=== PATIENT | male | born 1960 | race Caucasian/White ===

== ENCOUNTER 2024-03-12 13:31 | Emergency (ER) | payer MEDICARE, OTHER, SELFPAY ==
[2024-03-12 13:34] VITALS: BP 141/86
[2024-03-12 13:57] LABS: % Basophils 0.8 % (0-2); % Eosinophils 1.3 % (0-6); % Immature Granulocytes 0.2 % (0-0.5); % Lymphocytes 24.9 % (20.5-51.1); % Monocytes 9.9 % (1.7-9.3); % Neutrophils 62.9 % (42.2-75.2); Absolute Basophils 0.1 10^3/uL (0-0.2); Absolute Eosinophils 0.1 10^3/uL (0-0.7); Absolute Lymphocytes 2.1 10^3/uL (1.2-3.4); Absolute Monocytes 0.8 10^3/uL (0.1-0.6); Absolute Neutrophils 5.3 10^3/uL (1.4-6.5); Hematocrit 44.2 % (39.0-52.0); Hemoglobin 15.2 g/dL (13.0-18.0); Mean Corp Hgb Conc. 34.4 g/dL (33.0-37.0); Mean Corpuscular Hgb 31.8 pg (27.0-31.0); Mean Corpuscular Volume 92.5 fL (80.0-94.0); Nucleated Red Blood Cells % 0 % (-); Platelet Count 255 10^3/uL (130-400); Red Blood Cell Count 4.78 10^6/uL (4.70-6.10); Red Cell Dist. Width 12.9 % (11.5-14.5); White Blood Cell Count 8.4 10^3/uL (4.8-10.8)
[2024-03-12 14:05] LABS: INR 1.06; PT 13.6 Sec (11.4-14.6)
[2024-03-12 14:06] LABS: APTT 25.8 Sec (23.4-35.0)
[2024-03-12 14:09] LABS: ALT (SGPT) 28 U/L (0-50); AST (SGOT) 31 U/L (17-59); Albumin 4.1 g/dl (3.5-5.0); Alkaline Phosphatase 101 U/L (38-126); Blood Urea Nitrogen 16 mg/dl (9-20); Calcium 9.2 mg/dl (8.4-10.2); Carbon Dioxide 26 mmol/L (22-30); Chloride 107 mmol/L (98-107); Glucose 102 mg/dl (70-99); Potassium 4.5 mmol/L (3.5-5.1); Sodium 135 mmol/L (135-145); Total Bilirubin 0.9 mg/dl (0.2-1.3); Total Protein 7.2 g/dl (6.3-8.2); eGFR > 60.00
[2024-03-12 14:19] LABS: Troponin I < 0.012 ng/ml
--- NOTE | 2024-03-12 19:02 | ED.GENMED ---
History of Present Illness
General
Chief Complaint: Chest Pain
Source: patient
Exam Limitations: none
Time Seen by Provider: 03/12/24 17:02
Nursing documentation reviewed up to this point in time: agreed with
Travel History
Have you had any contact with someone who has COVID-19?: No
Do you have any symptoms of coronavirus? Fever > 100 degrees, chills, cough, shortness of breath, sore throat, loss of taste or smell, muscle aches, or headache?: No
History of Present Illness
History of Present Illness:
63-year-old male with past medical history of hypertension hyperlipidemia previous myocarditis presenting to the emergency department today with concerns of chest pain some generalized weakness starting last night. Denies shortness of breath nausea
vomiting diaphoresis. Claims that he had similar symptoms many times in the past but denies any definitive diagnosis.
Past History
Past History
ED Past Medical History: CAD, GERD, HTN, Hypercholesterolemia and CT
ED Past Surgical History: Cardiac (Stents X2) and Other (Hernia repair)
Social History
Tobacco: Former smoker
Alcohol: Occasional
Drug: None
Personal:
Living: alone
Employment: Employed
Family History
Family History: Other
Review of Systems
Review of Systems
Allergies reviewed?: Yes
All Other Systems: ROS reviewed and negative except as documented in HPI and ROS
Phy Exam
Physical Exam
Physical Exam:
GENERAL: Alert , in no apparent distress
EYE: pupils equal and reactive
NECK: Supple, no significant adenopathy.
ENT: o/p clr, mmm.
CARDIAC: Regular rate and rhythm .
LUNGS: Clear breath sounds bilaterally, no acute respiratory distress, no wheezes/rales/rhonchi
ABDOMEN: Soft, without focal tenderness, no r/g, no cvat
NEUROLOGICAL: Alert and oriented, no focal neuro deficits
SKIN: Warm and dry, skin intact.
MUSCULOSKELETAL: No edema, well perfused.
PSYCH: Normal and appropriate interaction.
Scores
Heart Score for Chest Pain Patients
STEMI patient?: No
History: Slightly or Non-Suspicious
ECG: Normal
Age: >/= 65 years
Risk Factors: >/= 3 Risk Factors or History of CAD
Troponin: </= Normal Limit
Heart Score for Chest Pain Patients: 4
Heart Score Risk: 20.3% MACE over next 6 weeks
Course
Orders/Labs/Results
Orders:
Orders
03/12/24 13:36
Electrocardiogram (*1) Urgent
Reason for Study: Chest Pain
EKG- Treatment ONCE
03/12/24 13:44
Complete Blood Count/With Diff Urgent
Comprehensive Metabolic Panel Urgent
Protime/PTT Urgent
Troponin I Urgent
03/12/24 17:04
Chest [CR Chest - 2 Views ] Urgent
Comment:
Reason For Exam: cp
Abnormal Lab Results
03/12/24
13:44
MCH 31.8 H pg
(27.0-31.0)
Absolute Monos (auto) 0.8 H 10^3/uL
(0.1-0.6)
Monocytes % 9.9 H %
(1.7-9.3)
Glucose 102 H mg/dl
(70-99)
03/12/24 13:44
03/12/24 13:44
Vital Signs
Initial and Last Documented VS:
Initial Vital Signs
Temp Pulse Resp BP Pulse Ox
98.6 F 78 18 141/86 98
03/12/24 13:34 03/12/24 13:34 03/12/24 13:34 03/12/24 13:34 03/12/24 13:34
Last Documented Vital Signs
Temp Pulse Resp BP Pulse Ox
98.6 F 71 18 148/87 98
03/12/24 13:34 03/12/24 19:08 03/12/24 19:08 03/12/24 19:08 03/12/24 19:08
MDM/Problems Addressed
MDM/Problems Addressed:
63-year-old male presenting to the emergency department today with concerns of chest discomfort starting last night with associated generalized weakness. Here vital signs are normal upon arrival labs unremarkable troponin negative EKG nonischemic
chest x-ray normal. No signs of emergent pathology. Symptoms starting at least 3 hours prior to arrival. Patient advised for close cardiac and GI follow-up no evidence of acute coronary syndrome at this time. Low risk for PE.
*Critical Care Note
Total Time (30-74mins, 75-104mins- exclusive of procedures): Not Applicable
ED Attending Note
-
Portions of this chart may have been created with voice recognition software.� Occasional wrong word or��sound alike� substitutions may have occurred due to the inherent limitations of voice recognition software.
Discharge Plan
Departure
Patient Disposition: Home (Routine Discharge)
Date of Disposition: 03/12/24
Time of Disposition: 19:06
Patient with high blood pressure during this ER visit?: No
Condition: Good
Covid-19: Not Applicable
Discharge Problem:
Chest pain
Instructions: Chest Pain NON-[facility]P Bus Inspector Follow Up
Prescriptions:
No Action
aspirin 81 MG tablet,delayed release (DR/EC)
81 mg PO DAILY
zinc acetate 50 mg (zinc) Capsule
50 mg PO DAILY@1200
lisinopril 5 mg Tablet
5 mg PO HS
doxycycline hyclate 100 mg Tablet
100 mg PO BID
amoxicillin-pot clavulanate 875-125 mg Tablet
1 tab PO Q12H
ezetimibe [Zetia] 10 mg Tablet
10 mg PO HS
rosuvastatin [Crestor] 10 mg Tablet
10 mg PO HS
alpha lipoic acid 300 mg Capsule
600 mg PO BID
Iodine Synergy
1 tab PO DAILY@1200
Probiotic
1 tab PO HS
diltiazem HCl 120 mg capsule,extended release 24 hr
120 mg PO HS
Adreno Distress
2 tab PO Q12H
cholecalciferol (vitamin D3) [Vitamin D3] 50 mcg (2,000 unit) Capsule
100 mcg PO DAILY
Cartilage Formula
3 tab PO BID
Cinnamon
2,000 mg PO BID
Magnesium Plus Gaurd
2 tab PO Q12H
metronidazole 500 mg tablet
500 mg PO Q8H Qty: 15 0RF
phenazopyridine 200 mg tablet
200 mg PO TID PRN (Reason: dysuria) Qty: 30 1RF
omeprazole 20 mg capsule,delayed release(DR/EC)
20 mg PO DAILY Qty: 10 0RF
Referrals:
Boyd Valdez DO [Family Provider] -
Activity Restrictions/Additional Instructions:
You can to the emergency department today with concerns of chest discomfort. Here you had a reassuring evaluation you will need to follow-up closely with your flight inspector and GI doctor. Return to the emergency department for any worsening, new or
concerning symptoms.
Interventions
Interventions:
*Risk Screen - Suicide Last Done: 03/12/24 13:34
*General Assessment Last Done: 03/12/24 13:34
*Neglect/Abuse Screening Last Done: 03/12/24 13:34
ED- Fall Risk Assessment Last Done: 03/12/24 17:52
*ED COVID-19 Vaccine History Last Done: 03/12/24 13:34
*Nursing Disposition Last Done: 03/12/24 19:10
ED- Cardiac Assessment Last Done: 03/12/24 17:23
Discharge Date and Time
Discharge Date/Time: 03/12/24 19:11
Print Language: NIUEAN
[2024-03-12 19:08] VITALS: BP 148/87
== END 2024-03-12 19:11 | disposition home or self-care (01) ==
LOC: EMR 13:31
PROVIDERS: Student in an Organized Health Care Education/Training Program; EMERGENCY PHYSICIAN Emergency Medicine; FAMILY PHYSICIAN Family Medicine
DX: R07.89 Other chest pain (principal); R53.1 Weakness; I10 Essential (primary) hypertension; E78.00 Pure hypercholesterolemia, unspecified; I25.10 Atherosclerotic heart disease of native coronary artery without angina pectoris; K21.9 Gastro-esophageal reflux disease without esophagitis; G47.30 Sleep apnea, unspecified; F43.10 Post-traumatic stress disorder, unspecified; N40.0 Benign prostatic hyperplasia without lower urinary tract symptoms; I25.2 Old myocardial infarction; Z95.5 Presence of coronary angioplasty implant and graft; Z87.891 Personal history of nicotine dependence; Z79.82 Long term (current) use of aspirin; Z91.048 Other nonmedicinal substance allergy status
CPT/HCPCS: 99283; 71046; 80053; 84484; 85025; 85610; 85730; 93005

== ENCOUNTER → 2024-05-09 10:07 | Outpatient (REF) | payer MEDICARE, OTHER, SELFPAY | LOC: HWRAD 10:07 | PROVIDERS: ATTENDING PHYSICIAN Family Medicine | DX: M79.671 Pain in right foot (principal) | CPT/HCPCS: 73630 ==

== ENCOUNTER 2024-11-06 09:25 | Emergency (ER) | payer OTHER, SELFPAY ==
[2024-11-06 09:30] VITALS: BP 142/98
--- NOTE | 2024-11-06 10:12 | ED.GENMED ---
History of Present Illness
General
Chief Complaint: DVT/Possible Blood Clot
Time Seen by Provider: 11/06/24 10:12
History of Present Illness
History of Present Illness:
TIME OF INITIAL ENCOUNTER: 10:15 AM
HPI: The patient presents with right lower extremity pain. A couple months ago, the patient had symptoms consistent with plantar fasciitis. He was given a steroid injection twice. He was favoring the pain in the right foot. More recently he has
developed pain in the right calf. He describes a cramp. He denies any symptoms in any other extremity.
EXAM:
GENERAL: Well appearing in no distress
HEENT: Moist oral mucosa
NEUROLOGIC: Excellent strength all extremities, no obvious coordination deficits
PSYCHIATRIC: Appropriate mental status, normal insight and judgement
EXTREMITIES: Nontender, no edema, moves all extremities equally, the compartments are soft, there is no significant calf tenderness, dysfunction at the knee and ankle are excellent
SKIN: No rash, no lesions
NUMBER AND COMPLEXITY OF PROBLEMS ADDRESSED AT THE ENCOUNTER
� Chronic conditions affecting care: High blood pressure, hyperlipidemia, BPH
� Acute Exacerbation and/or Progression of Chronic Illness: This is an acute problem
� Differential Diagnosis includes: DVT, superficial thrombophlebitis, calf strain, doubt electrolyte abnormality
AMOUNT AND/OR COMPLEXITY OF DATA TO BE REVIEWED AND ANALYZED
� I performed an independent evaluation of and my interpretation is:
EKG:
CT:
X-rays:
Laboratory Studies:
Other: Ultrasound imaging personally reviewed and I agree with radiologist interpretation that there is no DVT
� Review of other/old records: The patient went to the OR December 2022 related to BPH
� Clinical information was obtained by an independent historian: None needed
� Prescriptions/Medications Considered but not given: Offered and considered analgesia however the patient declines and appears comfortable anyway
� Further testing considered but not performed:
RISK OF COMPLICATIONS AND/OR MORBIDITY OR MORTALITY OF PATIENT MANAGEMENT
� Social determinants of health affecting care: Lives at home, gets care [facility] the [facility]
� Discussion with other providers:
� Escalation of care including admission/observation vs risk of discharge considered: The physical examination is unremarkable. Doubt electrolyte abnormality as the symptoms are localized to the right calf region. He has no
symptoms in other extremities. Ultrasound imaging is reassuring. He states he has an appointment to see the sausage stuffer at the [facility] in 3 days.
ANY OTHER UPDATES:
Past History
Past History
ED Past Medical History: CAD, GERD, HTN, Hypercholesterolemia and [place]
ED Past Surgical History: Cardiac (Stents X2) and Other (Hernia repair)
Social History
Tobacco: Former smoker
Alcohol: Occasional
Drug: None
Personal:
Living: alone
Employment: Employed
Family History
Family History: Other
Phy Exam
Physical Exam
Physical Exam:
See HPI
Course
Orders/Labs/Results
Orders:
Orders
11/06/24 09:33
US Legs, Right [US Periph Venous LOWER Ext RT] Urgent
Comment:
Reason For Exam: pain in calf
Vital Signs
Initial and Last Documented VS:
Initial Vital Signs
Temp Pulse Resp BP Pulse Ox
37.2 C 86 16 142/98 98
11/06/24 09:30 11/06/24 09:30 11/06/24 09:30 11/06/24 09:30 11/06/24 09:30
Last Documented Vital Signs
Temp Pulse Resp BP Pulse Ox
37.2 C 86 16 142/98 98
11/06/24 09:30 11/06/24 09:30 11/06/24 09:30 11/06/24 09:30 11/06/24 09:30
*Critical Care Note
Total Time (30-74mins, 75-104mins- exclusive of procedures): Not Applicable
ED Attending Note
-
Portions of this chart may have been created with voice recognition software.� Occasional wrong word or��sound alike� substitutions may have occurred due to the inherent limitations of voice recognition software.
Discharge Plan
Departure
Patient Disposition: Home (Routine Discharge)
Date of Disposition: 11/06/24
Time of Disposition: 10:32
Patient with high blood pressure during this ER visit?: Yes
Discharge Problem:
Calf cramp
Prescriptions:
No Action
aspirin 81 MG tablet,delayed release (DR/EC)
81 mg PO DAILY
zinc acetate 50 mg (zinc) Capsule
50 mg PO DAILY@1200
lisinopril 5 mg Tablet
5 mg PO HS
doxycycline hyclate 100 mg Tablet
100 mg PO BID
amoxicillin-pot clavulanate 875-125 mg Tablet
1 tab PO Q12H
ezetimibe [Zetia] 10 mg Tablet
10 mg PO HS
rosuvastatin [Crestor] 10 mg Tablet
10 mg PO HS
alpha lipoic acid 300 mg Capsule
600 mg PO BID
Iodine Synergy
1 tab PO DAILY@1200
Probiotic
1 tab PO HS
diltiazem HCl 120 mg capsule,extended release 24 hr
120 mg PO HS
Adreno Distress
2 tab PO Q12H
cholecalciferol (vitamin D3) [Vitamin D3] 50 mcg (2,000 unit) Capsule
100 mcg PO DAILY
Cartilage Formula
3 tab PO BID
Cinnamon
2,000 mg PO BID
Magnesium Plus Gaurd
2 tab PO Q12H
metronidazole 500 mg tablet
500 mg PO Q8H Qty: 15 0RF
phenazopyridine 200 mg tablet
200 mg PO TID PRN (Reason: dysuria) Qty: 30 1RF
omeprazole 20 mg capsule,delayed release(DR/EC)
20 mg PO DAILY Qty: 10 0RF
Activity Restrictions/Additional Instructions:
The cause of your symptoms is unclear however we see no sign of blood clot. Ultrasound report: 'The RIGHT common femoral, femoral, popliteal, peroneal, and posterior tibial veins are patent. There is no sonographic evidence for deep venous
thrombosis'. [facility]
Interventions
Interventions:
*Risk Screen - Suicide Last Done: 11/06/24 09:30
*General Assessment Last Done: 11/06/24 09:30
*Neglect/Abuse Screening Last Done: 11/06/24 09:30
ED- Fall Risk Assessment Last Done: 11/06/24 10:25
*ED COVID-19 Vaccine History Last Done: 11/06/24 10:23
ED- Cardiac Assessment Last Done: 11/06/24 10:23
ED- Pulmonary Assessment Last Done: 11/06/24 10:23
ED-Peripheral Vascular Assessment Last Done: 11/06/24 10:23
ED-Skin Assessment Last Done: 11/06/24 10:23
Discharge Date and Time
Print Language: TRINIDADIAN
[2024-11-06 10:23] VITALS: BMI 26.4
== END 2024-11-06 10:47 | disposition home or self-care (01) ==
LOC: EMR 09:25
PROVIDERS: EMERGENCY PHYSICIAN Emergency Medicine; FAMILY PHYSICIAN Family Medicine
DX: R25.2 Cramp and spasm (principal); M79.661 Pain in right lower leg; M79.671 Pain in right foot; M72.2 Plantar fascial fibromatosis; I10 Essential (primary) hypertension; E78.00 Pure hypercholesterolemia, unspecified; I25.10 Atherosclerotic heart disease of native coronary artery without angina pectoris; K21.9 Gastro-esophageal reflux disease without esophagitis; I25.2 Old myocardial infarction; Z95.5 Presence of coronary angioplasty implant and graft; Z87.891 Personal history of nicotine dependence; Z91.048 Other nonmedicinal substance allergy status; Z79.82 Long term (current) use of aspirin
CPT/HCPCS: 99284; 93971

== ENCOUNTER 2025-09-10 11:24 | Emergency (ER) | payer MEDICARE, OTHER, SELFPAY ==
[2025-09-10 11:30] VITALS: BP 158/82
[2025-09-10 11:44] LABS: Hematocrit 46.7 % (39.0-52.0); Hemoglobin 15.5 g/dL (13.0-18.0); Mean Corp Hgb Conc. 33.2 g/dL (33.0-37.0); Mean Corpuscular Volume 95.1 fL (80.0-94.0); Nucleated Red Blood Cells % 0 % (-); Platelet Count 246 10^3/uL (130-400); Red Cell Dist. Width 13.1 % (11.5-14.5)
[2025-09-10 12:05] LABS: ALT (SGPT) 28 U/L (0-50); AST (SGOT) 28 U/L (17-59); Albumin 4.5 g/dl (3.5-5.0); Alkaline Phosphatase 83 U/L (38-126); Blood Urea Nitrogen 22 mg/dl (9-20); Calcium 9.3 mg/dl (8.4-10.2); Carbon Dioxide 24 mmol/L (22-30); Chloride 108 mmol/L (98-107); Glucose 115 mg/dl (70-99); Potassium 4.5 mmol/L (3.5-5.1); Sodium 136 mmol/L (135-145); Total Protein 8.0 g/dl (6.3-8.2); eGFR > 60.00
[2025-09-10 12:12] LABS: Troponin I < 0.012 ng/ml
--- NOTE | 2025-09-10 12:35 | ED.GENMED ---
History of Present Illness
General
Chief Complaint: Chest Pain
Time Seen by Provider: 09/10/25 12:35
History of Present Illness
History of Present Illness:
FOCUSED PAST MEDICAL HISTORY
- Former smoker, 'borderline diabetes, high blood pressure, has had myocarditis, GERD, has had SVT in the past
REVIEW OF OLD RECORDS
- I reviewed records, the patient has been seen here in the past for SVT
Note:
CHIEF COMPLAINT(S)
Chest pain after exertion while removing a stump.
HISTORY OF PRESENT ILLNESS
The patient, a 64-year-old male with a history of coronary artery disease and previous coronary stent placements, presents with chest discomfort following exertion while digging out a stump two days ago. He reports that the pain is located in the
lower part of the chest and improves with rubbing. The patient denies any abdominal pain, sweating, or recent dyspnea. The discomfort is not as severe as it initially was and is improving. The patient has a history of two coronary stents placed
approximately 20 years ago, with a cardiac catheterization conducted last year showing clear results. He has not had a myocardial infarction since then. Recent cardiac blood work, including a troponin level, was normal.
PAST MEDICAL AND SURIGICAL HISTORY
History of coronary artery disease with two coronary stents placed 20 years ago.
ADDITIONAL HISTORY OBTAINED FROM SOURCES OTHER THAN THE PATIENT
The patient provided a copy of an electrocardiogram (EKG) from an urgent care visit, and it was reviewed and compared to the EKG conducted today. He reported that previous EKGs have mentioned a right bundle branch block.
EXTERNAL RECORDS REVIEWED
EKG from [facility] conducted in March.
CHRONIC MEDICAL CONDITIONS SIGNIFICANTLY AFFECTING CARE
Coronary artery disease.
REVIEW OF SYSTEMS
- Cardiovascular: History of coronary artery disease and coronary stent placement. No recent chest pain similar to previous myocardial infarction, patient denies symptoms consistent with angina such as significant chest pressure or discomfort
radiating to arm/jaw.
- Respiratory: Patient denies shortness of breath.
- Gastrointestinal: No abdominal pain or related symptoms.
PHYSICAL EXAM
General: Alert, no acute distress.
Skin: Warm, dry.
Head: Normocephalic, atraumatic.
Neck: Supple, trachea midline.
Eye, Ears, Nose, Mouth, and Throat: Oral mucosa moist.
Cardiovascular: Normal peripheral perfusion, no edema. Heart sounds are regular with no murmurs.
Respiratory: Respirations are non-labored, breath sounds are clear and equal.
Gastrointestinal: Abdomen nondistended.
Back: Normal range of motion, normal alignment.
Musculoskeletal: Normal range of motion, normal strength.
Neurological: Alert and oriented to person, place, time, and situation, no focal neurological deficit observed.
Psychiatric: Cooperative, appropriate mood and affect.
Musculoskeletal: Localized tenderness at the site of chest discomfort upon palpation, particularly at the site consistent with the xiphoid process.
PROBLEM LIST
Acute: Chest wall tenderness due to exertion.
Chronic: Coronary artery disease with previous coronary stent placement.
PLAN
- Discharge the patient with recommendations to follow up with their coil winder to discuss any changes or concerns, given the history of coronary artery disease.
- Patient education regarding signs of cardiac issues and to seek medical attention if symptoms worsen or change.
- Provide discharge paperwork with instructions to contact their cardiologists office.
DIFFERENTIAL DIAGNOSIS
The Differential Diagnosis includes, in no particular order and is not limited to:
1. Musculoskeletal pain due to exertion.
2. Costochondritis.
3. Acute coronary syndrome (ruled out by normal troponin levels).
4. Gastroesophageal reflux disease.
5. Pneumothorax (less likely due to normal respiratory examination).
6. Pulmonary embolism (less likely due to normal respiratory and cardiovascular examination).
7. Pericarditis.
8. Rib fracture (unlikely as no trauma and normal physical exam findings).
9. Esophageal spasm.
10. Gallbladder disease (unlikely due to absence of abdominal symptoms).
Disposition:
SUMMARY OF ENCOUNTER
The patient, a 64-year-old male with a history of coronary artery disease and previous coronary stent placements, presented with chest discomfort that occurred after exertion while digging out a stump two days prior. The pain localized in the lower
chest improved with rubbing and was spontaneously improving. Since his recent cardiac catheterization was unremarkable with clear results, and his symptoms are not strongly suggestive of acute coronary syndrome, a non-cardiac cause of the chest pain
was considered. An EKG conducted shows a right bundle branch block with no new ST changes. A recent troponin test was negative, which contributed to ruling out an acute coronary syndrome.
DISPOSITION
Discharge.
ASSESSMENT
The patients chest pain is most likely musculoskeletal in origin based on the improvement of symptoms with rubbing and spontaneous resolution, along with negative troponin and recent clear cardiac catheterization results.
PLAN
The patient will be discharged with instructions to follow up with their coil winder regarding their recent cardiac history and current symptoms to ensure any underlying concerns are monitored or addressed.
INDEPENDENT REVIEW OF LABS AND INTERPRETATION OF TESTS
My independent review of the EKG shows a right bundle branch block with no new ST changes.
PATIENT EDUCATION AND COUNSELING
Discussed with the patient the potential musculoskeletal nature of his chest pain and educated him on signs of cardiac issues. Advised seeking immediate medical attention if symptoms worsen or change, and encouraged regular follow-up with his
coil winder.
FOLLOW-UP INSTRUCTIONS
Please contact your cardiologists office to schedule a follow-up visit.
MEDICAL DECISION MAKING
-Complexity of Data Reviewed: Chronic conditions affecting care include coronary artery disease and previous coronary stent placement. Differential diagnosis includes musculoskeletal pain due to exertion, costochondritis, acute coronary syndrome
(ruled out by normal troponin levels), gastroesophageal reflux disease, pneumothorax, pulmonary embolism, pericarditis, rib fracture, esophageal spasm, and gallbladder disease.
-Data:
Category 1
- Clinical information was obtained from an independent historian.
- My independent interpretation of the EKG was reviewed, showing a right bundle branch block with no new ST changes.
-Risk:
Consideration of Admission/Observation: Escalation of care including admission/observation was considered given the complexity and risk of the patients presenting complaint, exam findings, and underlying comorbidities. However, ultimately, I feel
the patient is safe for outpatient management with close follow-up. Reasoning: Work-up reassuring, does not reveal any acute life/organ-threatening processes, patients symptoms well controlled upon reevaluation, reexamination is reassuring, vitals
are stable, patient agreeable with discharge, reliable for follow-up.
DIAGNOSIS
Chest pain, unspecified (ICD-10: R07.9)
Musculoskeletal chest pain (ICD-10: M79.1)
EKG
- Sinus 60, right bundle branch block is new but has had a prolonged QRS in the past more consistent with LAFB, nonspecific ST abnormality, inferior Q waves are old
LABS
- CBC unremarkable, chemistries unremarkable, troponin unremarkable
Past History
Past History
ED Past Medical History: CAD, GERD, HTN, Hypercholesterolemia and [place]
ED Past Surgical History: Cardiac (Stents X2) and Other (Hernia repair)
Social History
Tobacco: Former smoker
Alcohol: Occasional
Drug: None
Personal:
Living: alone
Employment: Employed
Family History
Family History: Other
Phy Exam
Physical Exam
Physical Exam:
See HPI
Scores
Heart Score for Chest Pain Patients
STEMI patient?: Not applicable
Course
Orders/Labs/Results
Orders:
Orders
09/10/25 11:32
Electrocardiogram (*1) Urgent
Reason for Study: Chest Pain
EKG- Treatment ONCE
09/10/25 11:37
Complete Blood Count/With Diff Urgent
Comprehensive Metabolic Panel Urgent
Troponin I Urgent
Abnormal Lab Results
09/10/25
11:37
MCV 95.1 H fL
(80.0-94.0)
MCH 31.6 H pg
(27.0-31.0)
Absolute Monos (auto) 0.7 H 10^3/uL
(0.1-0.6)
Monocytes % 12.0 H %
(1.7-9.3)
Chloride 108 H mmol/L
(98-107)
BUN 22 H mg/dl
(9-20)
Glucose 115 H mg/dl
(70-99)
09/10/25 11:37
09/10/25 11:37
Vital Signs
Initial and Last Documented VS:
Initial Vital Signs
Temp Pulse Resp BP Pulse Ox
36.6 C 57 16 158/82 99
09/10/25 11:30 09/10/25 11:30 09/10/25 11:30 09/10/25 11:30 09/10/25 11:30
Last Documented Vital Signs
Temp Pulse Resp BP Pulse Ox
36.6 C 57 16 158/82 99
09/10/25 11:30 09/10/25 11:30 09/10/25 11:30 09/10/25 11:30 09/10/25 12:39
*Pulse Oximetry
SaO2: 99
Oxygen Mode of Delivery: Room air
Patient hypoxic: no
*Critical Care Note
Total Time (30-74mins, 75-104mins- exclusive of procedures): Not Applicable
ED Attending Note
-
Portions of this chart may have been created with voice recognition software.� Occasional wrong word or��sound alike� substitutions may have occurred due to the inherent limitations of voice recognition software.
Discharge Plan
Departure
Patient Disposition: Home (Routine Discharge)
Date of Disposition: 09/10/25
Time of Disposition: 12:44
Patient with high blood pressure during this ER visit?: Yes
Discharge Problem:
Chest pain
Instructions: Chest Pain NON-DHP Postbed Stitcher Follow Up, BLOOD PRESSURE
Prescriptions:
No Action
aspirin 81 MG tablet,delayed release (DR/EC)
81 mg PO DAILY
zinc acetate 50 mg (zinc) Capsule
50 mg PO DAILY@1200
lisinopril 5 mg Tablet
5 mg PO HS
doxycycline hyclate 100 mg Tablet
100 mg PO BID
amoxicillin-pot clavulanate 875-125 mg Tablet
1 tab PO Q12H
ezetimibe [Zetia] 10 mg Tablet
10 mg PO HS
rosuvastatin [Crestor] 10 mg Tablet
10 mg PO HS
alpha lipoic acid 300 mg Capsule
600 mg PO BID
Iodine Synergy
1 tab PO DAILY@1200
Probiotic
1 tab PO HS
diltiazem HCl 120 mg capsule,extended release 24 hr
120 mg PO HS
Adreno Distress
2 tab PO Q12H
cholecalciferol (vitamin D3) [Vitamin D3] 50 mcg (2,000 unit) Capsule
100 mcg PO DAILY
Cartilage Formula
3 tab PO BID
Cinnamon
2,000 mg PO BID
Magnesium Plus Gaurd
2 tab PO Q12H
metronidazole 500 mg tablet
500 mg PO Q8H Qty: 15 0RF
phenazopyridine 200 mg tablet
200 mg PO TID PRN (Reason: dysuria) Qty: 30 1RF
omeprazole 20 mg capsule,delayed release(DR/EC)
20 mg PO DAILY Qty: 10 0RF
Activity Restrictions/Additional Instructions:
EKG shows no clear sign of heart attack or coronary blockages but you do have a right bundle branch block which is new in comparison to prior. This does not mean anything serious. Your cardiac blood work shows no sign of heart attack. I recommend
you follow-up with your coil winder for further evaluation. Return if worse or other concerns.
Interventions
Interventions:
*Risk Screen - Suicide Last Done: 09/10/25 11:28
*Neglect/Abuse Screening Last Done: 09/10/25 11:32
Discharge Date and Time
Print Language: HEBREW
== END 2025-09-10 13:25 | disposition home or self-care (01) ==
LOC: EMR 11:24
PROVIDERS: Student in an Organized Health Care Education/Training Program; EMERGENCY PHYSICIAN Emergency Medicine; FAMILY PHYSICIAN Family Medicine
DX: R07.89 Other chest pain (principal); E78.00 Pure hypercholesterolemia, unspecified; I10 Essential (primary) hypertension; I25.10 Atherosclerotic heart disease of native coronary artery without angina pectoris; I25.2 Old myocardial infarction; Z87.891 Personal history of nicotine dependence; Z95.5 Presence of coronary angioplasty implant and graft
CPT/HCPCS: 99284; 80053; 84484; 85025; 93005